=== PATIENT | female | born 1950 | race African-American/Black ===

== ENCOUNTER 2017-01-05 11:08 | Inpatient (IN) | payer MEDICARE, MEDICAID ==
[~2017-01-05] VITALS: Ht 162.6 cm; Wt 84.1 kg
[2017-02-01] VITALS (12 sets, daily range): BP systolic 120–155; BP diastolic 66–92; PULSE 67–106; TEMP 97.1–99.1
[2017-02-01] MEDS ORDERED: NORVASC 10MG10 MG PO (06:34)
[2017-02-01] MEDS ORDERED: KOMBIGLYZE XR 11 TE1 PO (06:35)
[2017-02-01] MEDS ORDERED: LOPRESSOR100 MG PO (06:36)
[2017-02-01] MEDS ORDERED: GLUCOTROL XL10 MG PO (06:37)
[2017-02-01] MEDS ORDERED: PRAVACHOL 40MG40 MG PO (06:37)
[2017-02-01] MEDS ORDERED: COZAAR100 MG PO (06:37)
[2017-02-01] MEDS ORDERED: TAPAZOLE5 MG PO (06:38)
[2017-02-01] MEDS ORDERED: PROTONIX 40MG T40 MG PO (06:39)
[2017-02-01] MEDS ORDERED: CATAPRES 0.1MG0.1 MG PO (06:39)
[2017-02-01] MEDS ORDERED: NEURONTIN300 MG/CAP PO (06:40)
[2017-02-01] MEDS ORDERED: DILAUDID 2MG TAB2 MG PO (06:40)
[2017-02-01] MEDS ORDERED: VALIUM 5MG T5 MG/TAB PO (06:41)
[2017-02-01] MEDS ORDERED: FLEXERIL 1010 MG/TAB PO (06:41)
[2017-02-01] MEDS ORDERED: AMBIEN 10MG10 MG PO (06:42)
[2017-02-01 13:19] LABS: BASO % 0.3 % (0.0-2.0); EOS % 0.1 % (0-4.0); GRAN # 8.5 (1.4-6.5); GRAN % 88.4 % (42.2-75.2); HEMATOCRIT 38.5 % (37.0-47.0); LYMPH # 0.9 (1.2-3.4); LYMPH % 9.1 % (20.0-51.0); MEAN CELL VOLUME 85 fl (80.0-100.0); MEAN CORPUSCULAR HEMOGLOBIN 26 pg (27.0-31.0); MEAN CORPUSCULAR HGB CONC 31 g/dl (33.0-37.0); MEAN PLATELET VOLUME 10.4 fl (7.4-10.4); MONO # 0.1 (0.1-0.6); MONO % 1.5 % (1.7-9.3); PLATELET COUNT 176 K/mm3 (130-400); RED BLOOD COUNT 4.54 M/mm3 (4.10-5.30); REDCELL DISTRIBUTION WIDTH-CV 12.6 % (11.5-14.5); WHITE BLOOD COUNT 9.6 K/mm3 (4.8-10.8)
[2017-02-01 13:20] LABS: HEMOGLOBIN 11.9 g/dl (12.5-16.0)
[2017-02-01 13:35] LABS: CALCIUM 8.6 mg/dL (8.4-10.2); CREATININE, serum 0.9 mg/dL (0.52-1.25); POTASSIUM 4.2 mmol/L (3.4-5.0)
[2017-02-02] VITALS (7 sets, daily range): BP systolic 146–172; BP diastolic 81–95; PULSE 82–112; TEMP 97.5–98.8
[2017-02-02 06:52] LABS: BASO % 0.2 % (0.0-2.0); GRAN # 8.8 (1.4-6.5); GRAN % 80.5 % (42.2-75.2); LYMPH # 1.3 (1.2-3.4); LYMPH % 12.1 % (20.0-51.0); MEAN CELL VOLUME 82 fl (80.0-100.0); MEAN CORPUSCULAR HGB CONC 32 g/dl (33.0-37.0); MEAN PLATELET VOLUME 11.2 fl (7.4-10.4); MONO # 0.8 (0.1-0.6); MONO % 6.8 % (1.7-9.3); PLATELET COUNT 223 K/mm3 (130-400); RED BLOOD COUNT 4.37 M/mm3 (4.10-5.30); REDCELL DISTRIBUTION WIDTH-CV 12.4 % (11.5-14.5)
[2017-02-02 06:59] LABS: CALCIUM 8.8 mg/dL (8.4-10.2); CREATININE, serum 0.73 mg/dL (0.52-1.25); POTASSIUM 3.5 mmol/L (3.4-5.0)
[2017-02-02 07:00] LABS: HEMATOCRIT 35.9 % (37.0-47.0); HEMOGLOBIN 11.6 g/dl (12.5-16.0); MEAN CORPUSCULAR HEMOGLOBIN 27 pg (27.0-31.0)
[2017-02-03 05:44] VITALS: BP 165/85; PULSE 91; TEMP 97.5
[2017-02-03 07:59] LABS: HEMATOCRIT 38.7 % (37.0-47.0); HEMOGLOBIN 12.2 g/dl (12.5-16.0); MEAN CELL VOLUME 83 fl (80.0-100.0); MEAN CORPUSCULAR HEMOGLOBIN 26 pg (27.0-31.0); MEAN CORPUSCULAR HGB CONC 32 g/dl (33.0-37.0); MEAN PLATELET VOLUME 11.1 fl (7.4-10.4); PLATELET COUNT 230 K/mm3 (130-400); RED BLOOD COUNT 4.65 M/mm3 (4.10-5.30); REDCELL DISTRIBUTION WIDTH-CV 12.7 % (11.5-14.5); WHITE BLOOD COUNT 9.6 K/mm3 (4.8-10.8)
[2017-02-03 08:03] LABS: CREATININE, serum 0.66 mg/dL (0.52-1.25); POTASSIUM 3.3 mmol/L (3.4-5.0)
[2017-02-03 10:55] VITALS: BP 126/86; PULSE 76; TEMP 99
[2017-02-03 14:18] VITALS: BP 145/85; PULSE 83; TEMP 98.7
[2017-02-03 18:08] VITALS: BP 157/89; PULSE 93; TEMP 98.6
[2017-02-03 20:29] VITALS: BP 151/78; PULSE 103; TEMP 99
[2017-02-04 01:27] VITALS: BP 134/73; PULSE 70; TEMP 98
[2017-02-04 06:18] VITALS: BP 147/88; PULSE 80; TEMP 98.5
[2017-02-04 09:57] VITALS: BP 142/84; PULSE 86; TEMP 98.1
[2017-02-04 14:09] VITALS: BP 109/64; PULSE 69; TEMP 98.1
[2017-02-04 17:43] VITALS: BP 123/72; PULSE 74; TEMP 98
[2017-02-04 20:16] VITALS: BP 118/68; PULSE 79; TEMP 98.1
[2017-02-05 02:02] VITALS: BP 90/48; PULSE 67; TEMP 98.2
[2017-02-05 05:10] VITALS: BP 122/78; PULSE 64; TEMP 98.5
[2017-02-05 09:07] VITALS: BP 102/69; PULSE 63; TEMP 97.5
[2017-04-03] MEDS ORDERED: PERCOCET 325 MG1 TA2 PO (09:06)
[2017-04-03] MEDS ORDERED: VALIUM 5MG T5 MG/TAB PO (09:07)
[2017-04-03] MEDS ORDERED: MORPHINE 1515 MG/TAB PO (09:08)
[2017-04-03] MEDS ORDERED: TRULICITY1.5 MG/0.5 SQ (09:12)
[2017-04-05] MEDS ORDERED: MELATONIN1 MG PO (11:00)
== END 2017-02-05 09:35 | disposition home or self-care (01) | DRG 658 ==
LOC: INPTSU 02-01 05:17 → SURG 02-01 05:17
PROVIDERS: Urology
PROC: 8E0W4CZ Robotic Assisted Procedure of Trunk Region, Percutaneous Endoscopic Approach (ICD-10-PCS; 2017-02-01)
PROC: 0TB04ZZ Excision of Right Kidney, Percutaneous Endoscopic Approach (ICD-10-PCS; principal; 2017-02-01 07:30)
DX: C64.1 Malignant neoplasm of right kidney, except renal pelvis (principal); E11.65 Type 2 diabetes mellitus with hyperglycemia; I10 Essential (primary) hypertension; Z85.3 Personal history of malignant neoplasm of breast; E05.00 Thyrotoxicosis with diffuse goiter without thyrotoxic crisis or storm
CPT/HCPCS: 99223; 99232-AI; A4315; A9284; C1713; J1100; J1815; J2270; J2370; J2405; J2704; J3010; J7030; J7050

== ENCOUNTER → 2017-04-05 | Outpatient (CLI) | payer MEDICARE, MEDICAID ==
[~2017-04-05] VITALS: Ht 165.1 cm; Wt 80.1 kg
[~2017-04-05] MED LIST: AMBIEN 10MG10 MG PO; CATAPRES 0.1MG0.1 MG PO; COZAAR100 MG PO; DILAUDID 2MG TAB2 MG PO; FLEXERIL 1010 MG/TAB PO; GLUCOTROL XL10 MG PO; KOMBIGLYZE XR 11 TE1 PO; LOPRESSOR100 MG PO; MELATONIN1 MG PO; MORPHINE 1515 MG/TAB PO; NEURONTIN300 MG/CAP PO; NORVASC 10MG10 MG PO; PERCOCET 325 MG1 TA2 PO; PRAVACHOL 40MG40 MG PO; PROTONIX 40MG T40 MG PO; TAPAZOLE5 MG PO; TRULICITY1.5 MG/0.5 SQ; VALIUM 5MG T5 MG/TAB PO
[2017-04-05 11:03] VITALS: BP 136/94; PULSE 79
[2017-04-05 12:55] VITALS: BP 172/102; PULSE 78
[2017-04-05 13:10] VITALS: BP 156/97; PULSE 73
== END ==
LOC: COL.RAD 10:35
DX: K11.9 Disease of salivary gland, unspecified (principal)
CPT/HCPCS: 13756

== ENCOUNTER 2018-03-18 14:31 | Emergency (ER) | payer MEDICARE ==
[~2018-03-18] VITALS: Ht 167.6 cm; Wt 83.2 kg
[2018-03-18 14:33] VITALS: BP 135/80; TEMP 98.1
[2018-03-18 15:51] VITALS: PULSE 78
== END 2018-03-18 15:51 | disposition home or self-care (01) ==
LOC: COL.ER 14:31
DX: S80.01XA Contusion of right knee, initial encounter (principal); S70.01XA Contusion of right hip, initial encounter; S80.02XA Contusion of left knee, initial encounter; W01.0XXA Fall on same level from slipping, tripping and stumbling without subsequent striking against object, initial encounter; Y92.512 Supermarket, store or market as the place of occurrence of the external cause